=== PATIENT | male | born 1955 | race Caucasian/White ===

== ENCOUNTER → 2023-12-20 | Outpatient (CLI) | payer MEDICARE, SELFPAY ==
--- NOTE | 2023-12-20 16:47 | XR_ITS ---
Examination: PA lateral chest 2 views TECHNIQUE: Upright PA lateral chest 2 views Exam date and time: December 20, 2023 1707 hours INDICATIONS: Preop shoulder surgery FINDINGS: Normal heart size Lungs are clear The osseous structures are intact IMPRESSION: No active disease
[2023-12-20 17:35] LABS: Basophils % (Auto) 1 % (0-2.5); Eosinophils # (Auto) 0.1 Thou/mm3 (0.0-0.5); Eosinophils % (Auto) 2 % (0-10); Hematocrit 45.8 % (41.0-53.0); Hemoglobin 16.2 g/dL (13.5-16.0); Immature Granulocytes % (Auto) 0 % (0-0); Immature Granulocytes Auto 0.03 Thou/mm3 (0.00-0.00); Lymphocytes # (Auto) 2.3 Thou/mm3 (1.0-4.8); Lymphocytes % (Auto) 32 % (10-50); Mean Corpuscular HGB Conc 35.4 g/dl (31.0-37.0); Mean Corpuscular Hemoglobin 32.4 pg (25.0-35.0); Mean Corpuscular Volume 92 fL (80-100); Monocytes # (Auto) 0.5 Thou/mm3 (0.0-0.8); Monocytes % (Auto) 7 % (0-12); Neutrophils # (Auto) 4.1 Thou/mm3 (1.8-7.7); Neutrophils % (Auto) 58 % (37-80); Nucleated Red Blood Cell % 0 /100 WBC (0); Platelet Count 232 Thou/mm3 (140-440); RDW Standard Deviation 45.1 fL (35.1-43.9)
[2023-12-20 17:50] LABS: Anion Gap 8 (7-16); BUN/Creatinine Ratio 13 Ratio (12-20); Blood Urea Nitrogen 17 mg/dL (9-23); Calcium 9.5 mg/dL (8.3-10.6); Carbon Dioxide 23.5 mMol/L (20.0-31.0); Chloride 107 mMol/L (98-107); Creatinine (Component) 1.3 mg/dL (0.6-1.3); Glucose 111 mg/dL (74-106); Osmolality,Calculated 278 (275-295); Potassium 4.4 mMol/L (3.4-5.1); Sodium 138 mMol/L (136-145); eGFR > 60 See Note
== END | disposition home or self-care (01) ==
LOC: CDIM 16:42 → COPL 17:11
PROVIDERS: Referring Provider Registered Nurse; Visit Provider Registered Nurse
DX: R05.9 Cough, unspecified (principal); Z01.818 Encounter for other preprocedural examination
CPT/HCPCS: 36415; 71046; 80048; 85025

== ENCOUNTER 2024-04-05 15:30 | Outpatient (RCR) | payer OTHER, SELFPAY ==
--- NOTE | 2024-03-29 15:38 | PT.OIERPT ---
PT OP Initial Eval Patient Information Outpatient Physical Therapy Treatment Date: 03/29/24 Visit Reasons: left shoulder surgery Medical Diagnosis: [id number] Treatment Dx #1: L shoulder pain Treatment Dx #2: Dec ROM of L shoulder Start of Care: 03/29/24 Date of Onset: 01/02/25 Smoking Status Smoking Status: Never smoker Initial Assessment Subjective: Pt is 68 yr old male s/p L shoulder A/S debridement, decompression, RC repair, biceps tenodesis and microfracture humeral head. Pt reports pain and decreased ROM. He has been working at [employer]. PMH: B knee and shoulder OA Pt goal: improve ROM and pain Objective: L shoulder AROM: Strength: FF: 110 deg 3+/5 Abd: 90 deg 3+/5 ER: 80 deg 3+/5 Hand behind back: L glute Assessment: Pt presentation consistent with referring Dx with decreased ROM, strength and function of L shoulder with reaching. Pt requires skilled therapy to meet goals and has good rehab potential. Short Term and Skilled Nursing Goals 1. Ind with HEP ? 2. Improved AROM of L shoulder to at least 145 deg FF, 135 deg abduction and 90 deg ? ER ? 3. Improved HBB ROM to L3 ? 4. Pt will reach OH x10 with <=4/10 pain Treatment Plan 1. Manual therapy ? 2. Therex? 3. Modalities as indicated, moist heat, ice, estim Frequency and Duration: 2x a week for 18 sessions plus evaluation Certification Dates: 03/29/24 to 06/24/24 Procedure Charges OP PT Eval Mod Complex 30 minutes: Yes
--- NOTE | 2024-04-05 17:11 | PT.ODAYNRPT ---
PT Outpatient Daily Note OP Daily Note Outpatient Physical Therapy Treatment Date: 04/05/24 Visit Reasons: left shoulder surgery Subjective: Pt lifted a trailer to connect it and felt pain after that Objective: See F/S for thompson GREER L shoulder x7' Assessment: Moderate tissue irritability with abduction ROM Plan: Cont per POC Length of Time (minutes) of Treatment: 30 Minutes Procedure Charges Therapeutic Exercise 30 minutes: Yes
== END 2024-04-14 23:59 | disposition home or self-care (01) ==
LOC: CPTX 15:30
PROVIDERS: PCP Physician Assistant; Referring Provider Physician Assistant; Visit Provider Physician Assistant
DX: M25.512 Pain in left shoulder (principal); Z98.890 Other specified postprocedural states
CPT/HCPCS: 97110; 97162